=== PATIENT | male | born 1995 | race Caucasian/White ===

== ENCOUNTER 2020-07-30 07:38 | Inpatient (IN) | payer OTHER ==
[~2020-07-30] VITALS: Ht 172.7 cm; Wt 65.1 kg
[~2020-07-30 07:38] MED LIST: CEFDINIR300 MG PO; HUMALOG 75100 UNIT/M SQ; HUMULIN 70100 UNIT/1 SC; LANTUS SOL100 UNIT/1 SC; LEVEMIR FL100 UNIT/1 SQ; NOVOLOG FL100 UNIT/1 SC; PEN NEEDLE1 EAC1 SQ; TAMIFLU 75MG CA75 MG PO
[2020-07-30 08:20] LABS: BASOPHIL 0.8 % (0-2); HCT 48.8 % (42.0-52.0); HGB 16.3 g/dl (13.2-18.0); LYMPHOCYTE 18.4 % (15-48); MCH 27.5 pg (25.0-31.0); MCHC 33.4 g/dL (32.0-36.0); MCV 82.3 fL (78.0-100.0); MONOCYTE 4.1 % (0-12); MPV 9.5 fL (6.0-9.5); NEUTROPHIL 73.2 % (41-80); NRBC 0; PLT 372 K/uL (150-400); RBC 5.93 M/uL (4.70-6.00); RDW 12.3 % (11.5-14.0); WBC 15.3 K/uL (4.0-10.5)
[2020-07-30 08:46] LABS: ALBUMIN 5.2 g/dL (3.4-5.0); BILIRUBIN - TOTAL 0.7 mg/dL (0.2-1.0); BUN/CREAT RATIO (CALC) 31.5 RATIO; CREATININE 0.92 mg/dL (0.67-1.17); POTASSIUM 4.6 mmol/L (3.5-5.1); TOTAL PROTEIN 8.2 g/dL (6.4-8.2)
[2020-07-30 08:54] LABS: LACTIC ACID 2.3 mmol/L (0.4-1.9)
[2020-07-30] MEDS ORDERED: HUMULIN R100 UNIT/1 SC (11:30)
[2020-07-30] MEDS ORDERED: LANTUS **100 UNITS/ SC (11:31)
[2020-07-30 18:00] LABS: BUN/CREAT RATIO (CALC) 21.2 RATIO; CREATININE 0.85 mg/dL (0.67-1.17); POTASSIUM 4.8 mmol/L (3.5-5.1)
[2020-07-30 20:14] LABS: BILIRUBIN 1+ mg/dL (NEGATIVE); BLOOD NEGATIVE Ery/uL (NEGATIVE); CLARITY CLEAR (CLEAR); COLOR YELLOW (YELLOW); GLUCOSE (U) 3+ mg/dL (NORMAL); LEUKOCYTES NEGATIVE Leu/uL (NEGATIVE); NITRITE NEGATIVE (NEGATIVE); PROTEIN NEGATIVE (NEGATIVE); SPECIFIC GRAVITY >=1.030 (1.001-1.030); UROBILINOGEN 0.2 mg/dL (0.2-1.0)
[2020-07-31 05:43] LABS: BASOPHIL 0.5 % (0-2); EOSINOPHIL 2.9 % (0-5); HCT 35.9 % (42.0-52.0); HGB 12.3 g/dl (13.2-18.0); LYMPHOCYTE 24.2 % (15-48); MCH 27.7 pg (25.0-31.0); MCHC 34.3 g/dL (32.0-36.0); MCV 80.9 fL (78.0-100.0); MONOCYTE 6.2 % (0-12); MPV 9.3 fL (6.0-9.5); NEUTROPHIL 65.5 % (41-80); NRBC 0; PLT 248 K/uL (150-400); RBC 4.44 M/uL (4.70-6.00); RDW 12.8 % (11.5-14.0); WBC 9.8 K/uL (4.0-10.5)
[2020-07-31 06:04] LABS: ALBUMIN 2.9 g/dL (3.4-5.0); BILIRUBIN - TOTAL 0.5 mg/dL (0.2-1.0); BUN/CREAT RATIO (CALC) 21.1 RATIO; CREATININE 0.71 mg/dL (0.67-1.17); GLOBULIN (CALCULATION) 2.2 g/dL; POTASSIUM 3.6 mmol/L (3.5-5.1)
[2020-07-31 06:05] LABS: TOTAL PROTEIN 5.1 g/dL (6.4-8.2)
--- NOTE | 2020-07-31 12:53 | NUR ---
DR FAJARDO WENT IN TO TALK TO PATIENT AND TOLD HIM HE WOULD HAVE TO GET HIM OFF THE INSULIN DRIP THEN D/C IN THE MORNING. PATIENT SAID NO HE WAS GOING HOME. WE ENCOURAGED HIM TO STAY BUT SAID HE WOULD SIGN AMA PAPERS HE WAS GOING HOME D/C INSULIN GTT AND GAVE 20UNITS LANTUS, REMOVED IVS,AND ENCOURAGED HIM TO GET INSULIN.
--- NOTE | 2020-07-31 14:10 | NUR ---
07/31/20 A social work referral was received stating patient is unable to get his insulin. 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 He reports to go to "[facility]". Mr. Humphrey declined assistance in securing a PCP. He has gone to Dr. Aguilar in the past. Mr. Humphrey reports to have been told not to come back. - Mr. Humphrey was educated to [facility] where he can get insulin without a prescription. He said the regular insulin makes him sick.
== END 2020-07-31 12:45 | disposition left against medical advice (07) | DRG 637 ==
LOC: FER 07:38 → FICU 09:25
PROVIDERS: Emergency Medicine; Nurse Practitioner; ADMIT Internal Medicine
DX: E10.10 Type 1 diabetes mellitus with ketoacidosis without coma (principal); G93.41 Metabolic encephalopathy; R65.10 Systemic inflammatory response syndrome (SIRS) of non-infectious origin without acute organ dysfunction; Z79.4 Long term (current) use of insulin; Z20.822 Contact with and (suspected) exposure to COVID-19; Z91.14 Patient's other noncompliance with medication regimen
CPT/HCPCS: 36415; 36600; 71045; 80048; 80053; 81003; 82009; 82803; 82962; 83036; 83605; 83690; 85025; 94010; C9113; J1650; J2405; J3480; J7030; U0002

== ENCOUNTER 2021-04-27 20:04 | Inpatient (IN) | payer OTHER ==
[~2021-04-27] VITALS: Ht 172.7 cm; Wt 64.9 kg
[~2021-04-27 20:04] MED LIST changes: +HUMULIN R100 UNIT/1 SC; +LANTUS **100 UNITS/ SC
[2021-04-27 20:54] LABS: BASOPHIL 0.9 % (0-2); EOSINOPHIL 4.6 % (0-5); HCT 51.6 % (42.0-52.0); HGB 17.3 g/dl (13.2-18.0); LYMPHOCYTE 22.2 % (15-48); MCH 27.3 pg (25.0-31.0); MCHC 33.5 g/dL (32.0-36.0); MCV 81.5 fL (78.0-100.0); MPV 9.7 fL (6.0-9.5); NEUTROPHIL 67.4 % (41-80); NRBC 0; PLT 306 K/uL (150-400); RBC 6.33 M/uL (4.70-6.00); RDW 12.1 % (11.5-14.0); WBC 16.6 K/uL (4.0-10.5)
[2021-04-27 21:07] LABS: BILIRUBIN NEGATIVE (NEGATIVE); BLOOD 1+ Ery/uL (NEGATIVE); CLARITY CLEAR (CLEAR); COLOR YELLOW (YELLOW); GLUCOSE (U) 2+ mg/dL (NORMAL); LEUKOCYTES NEGATIVE Leu/uL (NEGATIVE); NITRITE NEGATIVE (NEGATIVE); PROTEIN TRACE (LOW) mg/dL (NEGATIVE); SPECIFIC GRAVITY >=1.030 (1.001-1.030); UROBILINOGEN 0.2 mg/dL (0.2-1.0); pH 5.5 (5.0-9.0)
[2021-04-27 21:08] LABS: INR 0.97 (0.9-1.2); PROTHROMBIN TIME 12.3 SECONDS (11.8-13.4)
[2021-04-27 21:09] LABS: PTT 28.2 SECONDS (24.4-34.7)
[2021-04-27 21:15] LABS: URINARY RBC RARE
[2021-04-27 21:27] LABS: ALBUMIN 4.5 g/dL (3.4-5.0); ALKALINE PHOSHATASE 113 U/L (46-116); ALT 30 U/L (16-63); AST 17 U/L (15-37); BILIRUBIN - TOTAL 0.5 mg/dL (0.2-1.0); BUN 17 mg/dL (7-18); BUN/CREAT RATIO (CALC) 19.8 RATIO; CHLORIDE 93 mmol/L (98-107); CO2 (BICARBONATE) 8 mmol/L (21-32); CREATININE 0.86 mg/dL (0.67-1.17); GLOBULIN (CALCULATION) 3.9 g/dL; GLUCOSE 417 mg/dL (74-106); LDH 165 U/L (85-227); MAGNESIUM 2.2 mg/dL (1.8-2.4); PHOSPHORUS 3.4 mg/dL (2.6-4.7); POTASSIUM 4.2 mmol/L (3.5-5.1); TOTAL PROTEIN 8.4 g/dL (6.4-8.2)
[2021-04-27 21:28] LABS: C-REACTIVE PROTEIN < 0.20 mg/dL (<=0.90)
[2021-04-27 21:34] LABS: LACTIC ACID 0.8 mmol/L (0.4-1.9)
[2021-04-28 03:13] LABS: CREATININE 0.65 mg/dL (0.67-1.17); POTASSIUM 4.5 mmol/L (3.5-5.1)
[2021-04-28 07:58] LABS: BUN/CREAT RATIO (CALC) 12.3 RATIO; CREATININE 0.73 mg/dL (0.67-1.17); POTASSIUM 4.7 mmol/L (3.5-5.1)
[2021-04-28 13:15] LABS: BUN/CREAT RATIO (CALC) 10.8 RATIO; CREATININE 0.74 mg/dL (0.67-1.17); POTASSIUM 4.2 mmol/L (3.5-5.1)
[2021-04-28 16:59] LABS: BUN/CREAT RATIO (CALC) 11.1 RATIO; CREATININE 0.72 mg/dL (0.67-1.17); POTASSIUM 3.7 mmol/L (3.5-5.1)
[2021-04-29 05:46] LABS: HCT 41.3 % (42.0-52.0); HGB 14.5 g/dl (13.2-18.0); MCH 27.4 pg (25.0-31.0); MCHC 35.1 g/dL (32.0-36.0); MCV 77.9 fL (78.0-100.0); MPV 9.4 fL (6.0-9.5); RBC 5.3 M/uL (4.70-6.00); RDW 12.8 % (11.5-14.0); WBC 13.8 K/uL (4.0-10.5)
[2021-04-29 06:09] LABS: BUN/CREAT RATIO (CALC) 10.3 RATIO; CREATININE 0.58 mg/dL (0.67-1.17); POTASSIUM 3.3 mmol/L (3.5-5.1)
[2021-04-29 10:43] LABS: BUN/CREAT RATIO (CALC) 12.2 RATIO; CREATININE 0.49 mg/dL (0.67-1.17); MAGNESIUM 1.9 mg/dL (1.8-2.4); PHOSPHORUS 1.3 mg/dL (2.6-4.7); POTASSIUM 3.5 mmol/L (3.5-5.1)
[2021-04-29 17:18] LABS: BUN/CREAT RATIO (CALC) 9.7 RATIO; CREATININE 0.62 mg/dL (0.67-1.17); POTASSIUM 3.3 mmol/L (3.5-5.1)
[2021-04-30 06:15] LABS: BASOPHIL 0.2 % (0-2); EOSINOPHIL 0 % (0-5); HCT 40.8 % (42.0-52.0); HGB 14.2 g/dl (13.2-18.0); LYMPHOCYTE 12.9 % (15-48); MCH 26.9 pg (25.0-31.0); MCHC 34.8 g/dL (32.0-36.0); MCV 77.4 fL (78.0-100.0); MONOCYTE 6.7 % (0-12); MPV 9.7 fL (6.0-9.5); NEUTROPHIL 79.8 % (41-80); NRBC 0; PLT 205 K/uL (150-400); RBC 5.27 M/uL (4.70-6.00); RDW 12.9 % (11.5-14.0); WBC 12.2 K/uL (4.0-10.5)
[2021-04-30 06:35] LABS: BUN/CREAT RATIO (CALC) 8.9 RATIO; CREATININE 0.56 mg/dL (0.67-1.17); PHOSPHORUS 1.4 mg/dL (2.6-4.7)
[2021-05-01 07:05] LABS: BUN/CREAT RATIO (CALC) 10.9 RATIO; CREATININE 0.64 mg/dL (0.67-1.17); POTASSIUM 3.2 mmol/L (3.5-5.1)
[2021-05-01] MEDS ORDERED: NOVOLOG FL100 UNIT/1 SC (12:13)
[2021-05-01] MEDS ORDERED: ZOFRAN4 M1 PO (12:13)
[2021-05-01] MEDS ORDERED: LANTUS SOL100 UNIT/1 SC (12:13)
== END 2021-05-01 12:26 | disposition home or self-care (01) | DRG 639 ==
LOC: FER 20:04 → FICU 04-28 17:41 → FMS 04-30 08:35
PROVIDERS: Emergency Medicine; Emergency Medicine Emergency Medical Services; Internal Medicine; ADMIT Hospitalist
DX: E10.10 Type 1 diabetes mellitus with ketoacidosis without coma (principal); Z20.822 Contact with and (suspected) exposure to COVID-19; E87.6 Hypokalemia; E86.0 Dehydration; A08.4 Viral intestinal infection, unspecified; Z90.89 Acquired absence of other organs
CPT/HCPCS: 36415; 36600; 71045; 80048; 80053; 81001; 82009; 82728; 82803; 82962; 83036; 83605; 83615; 83690; 83735; 83880; 84100; 84145; 84443; 84484; 85025; 85610; 85730; 86140; 87040; 87088; 87880; 93005; J1650; J1815; J2405; J2550; J3480; J7030; J7040; J7050; U0002

== ENCOUNTER 2021-05-27 13:21 | Emergency (ER) | payer OTHER ==
[~2021-05-27 13:21] MED LIST changes: +ZOFRAN4 M1 PO
== END 2021-05-27 17:28 | disposition home or self-care (01) ==
LOC: FER 13:21
DX: L02.01 Cutaneous abscess of face (principal); E10.9 Type 1 diabetes mellitus without complications; Z79.4 Long term (current) use of insulin
CPT/HCPCS: 99282

== ENCOUNTER 2021-06-02 10:25 | Inpatient (IN) | payer OTHER ==
[~2021-06-02] VITALS: Ht 172.7 cm; Wt 65.9 kg
[2021-06-02 11:36] LABS: BUN/CREAT RATIO (CALC) 26.5 RATIO; CREATININE 1.02 mg/dL (0.67-1.17); POTASSIUM 4.9 mmol/L (3.5-5.1)
[2021-06-02 11:53] LABS: BASOPHIL 0.5 % (0-2); EOSINOPHIL 0.2 % (0-5); HCT 52.3 % (42.0-52.0); HGB 17.1 g/dl (13.2-18.0); LYMPHOCYTE 7.3 % (15-48); MCH 27.8 pg (25.0-31.0); MCHC 32.7 g/dL (32.0-36.0); MCV 84.9 fL (78.0-100.0); MONOCYTE 5.3 % (0-12); MPV 10.6 fL (6.0-9.5); NEUTROPHIL 85.8 % (41-80); NRBC 0; PLT 434 K/uL (150-400); RBC 6.16 M/uL (4.70-6.00); RDW 12.4 % (11.5-14.0)
[2021-06-02 11:59] LABS: WBC 35.3 K/uL (4.0-10.5)
[2021-06-02 13:35] LABS: LACTIC ACID 2.8 mmol/L (0.4-1.9)
[2021-06-02 14:25] LABS: BILIRUBIN NEGATIVE (NEGATIVE); BLOOD TRACE-INTACT Ery/uL (NEGATIVE); CLARITY CLEAR (CLEAR); COLOR YELLOW (YELLOW); GLUCOSE (U) 2+ mg/dL (NORMAL); LEUKOCYTES NEGATIVE Leu/uL (NEGATIVE); NITRITE NEGATIVE (NEGATIVE); PROTEIN NEGATIVE (NEGATIVE); SPECIFIC GRAVITY 1.025 (1.001-1.030); UROBILINOGEN 0.2 mg/dL (0.2-1.0); pH 5.5 (5.0-9.0)
[2021-06-02 15:28] LABS: SQUAMOUS EPITHELIAL CELLS RARE
[2021-06-02 19:13] LABS: ALBUMIN 3.8 g/dL (3.4-5.0); BILIRUBIN - TOTAL 0.3 mg/dL (0.2-1.0); CREATININE 0.76 mg/dL (0.67-1.17); GLOBULIN (CALCULATION) 2.5 g/dL; MAGNESIUM 2.1 mg/dL (1.8-2.4); PHOSPHORUS 3.4 mg/dL (2.6-4.7); POTASSIUM 4.7 mmol/L (3.5-5.1); TOTAL PROTEIN 6.3 g/dL (6.4-8.2)
[2021-06-03 03:44] LABS: HCT 36.9 % (42.0-52.0); HGB 12.9 g/dl (13.2-18.0); MCH 27.8 pg (25.0-31.0); MPV 9.7 fL (6.0-9.5); RBC 4.64 M/uL (4.70-6.00); RDW 12.6 % (11.5-14.0); WBC 20.4 K/uL (4.0-10.5)
[2021-06-03 03:52] LABS: MCV 79.5 fL (78.0-100.0)
[2021-06-03 04:05] LABS: BUN/CREAT RATIO (CALC) 19.1 RATIO; CREATININE 0.68 mg/dL (0.67-1.17)
[2021-06-03 04:19] LABS: POTASSIUM 3.8 mmol/L (3.5-5.1)
[2021-06-03 11:02] LABS: BUN/CREAT RATIO (CALC) 15.7 RATIO; CREATININE 0.7 mg/dL (0.67-1.17); POTASSIUM 3.8 mmol/L (3.5-5.1)
[2021-06-04 05:32] LABS: BUN/CREAT RATIO (CALC) 12.1 RATIO; CREATININE 0.66 mg/dL (0.67-1.17); POTASSIUM 3.4 mmol/L (3.5-5.1)
[2021-06-04 05:35] LABS: BASOPHIL 0.4 % (0-2); EOSINOPHIL 0.1 % (0-5); HCT 39.7 % (42.0-52.0); HGB 13.5 g/dl (13.2-18.0); LYMPHOCYTE 14.6 % (15-48); MCH 27.4 pg (25.0-31.0); MCV 80.5 fL (78.0-100.0); MONOCYTE 5.5 % (0-12); NRBC 0; PLT 264 K/uL (150-400); RBC 4.93 M/uL (4.70-6.00); RDW 12.9 % (11.5-14.0)
--- NOTE | 2021-06-04 17:14 | NUR ---
06/04/21 Mr. Humphrey now has [facility] insurance and Primary Care through Dr. Edgardo Dubose. Mr. Humphrey has seen one Lap[facility] Baster and was not pleased with the services. He has requested assistance in getting an appointment with a new Lapel Baster. A referral was made to the Resources Clinical Program ManagerEmani Candelario. A report was given to Dr. Jin.
[2021-06-05 06:58] LABS: BASOPHIL 0.5 % (0-2); EOSINOPHIL 0.4 % (0-5); HCT 37.5 % (42.0-52.0); HGB 12.9 g/dl (13.2-18.0); LYMPHOCYTE 27.7 % (15-48); MCHC 34.4 g/dL (32.0-36.0); MCV 78.5 fL (78.0-100.0); MONOCYTE 9.2 % (0-12); MPV 9.4 fL (6.0-9.5); NEUTROPHIL 61.8 % (41-80); NRBC 0; PLT 233 K/uL (150-400); RBC 4.78 M/uL (4.70-6.00); RDW 12.6 % (11.5-14.0); WBC 8.2 K/uL (4.0-10.5)
[2021-06-05 07:06] LABS: BUN/CREAT RATIO (CALC) 11.5 RATIO; CREATININE 0.78 mg/dL (0.67-1.17); POTASSIUM 2.7 mmol/L (3.5-5.1)
[2021-06-05] MEDS ORDERED: BACTRIM DS TAB1 EACH PO (08:17)
== END 2021-06-05 13:35 | disposition home or self-care (01) | DRG 853 ==
LOC: FER 10:25 → FICU 14:14 → FMS 14:14 → FER 16:22 → FMS 06-04 07:36
PROVIDERS: Allergy & Immunology Allergy; Emergency Medicine; Nurse Practitioner Acute Care; Surgery; ADMIT Internal Medicine
PROC: 0JB10ZZ Excision of Face Subcutaneous Tissue and Fascia, Open Approach (ICD-10-PCS; principal; 2021-06-04 12:30)
DX: A41.9 Sepsis, unspecified organism (principal); E10.10 Type 1 diabetes mellitus with ketoacidosis without coma; G93.41 Metabolic encephalopathy; L02.01 Cutaneous abscess of face; R65.20 Severe sepsis without septic shock; Z20.822 Contact with and (suspected) exposure to COVID-19; L72.3 Sebaceous cyst
CPT/HCPCS: 36415; 36600; 70486; 71045; 80048; 80053; 80202; 81001; 82009; 82803; 82962; 83036; 83605; 83735; 84100; 84145; 85025; 87040; 87070; 87075; C9113; J1100; J1650; J1815; J1885; J2001; J2250; J2405; J2543; J2704; J3010; J3370; J3480; J7030; J7050; J7120; U0002

== ENCOUNTER 2021-10-11 10:29 | Inpatient (IN) | payer OTHER ==
[~2021-10-11 10:29] MED LIST changes: +BACTRIM DS TAB1 EACH PO; +LANTUS100 UNIT/1 SC; +NOVOLOG VI100 UNIT/1 SC
[2021-10-11 11:38] LABS: BASOPHIL 0.4 % (0-2); EOSINOPHIL 0.1 % (0-5); HCT 47.3 % (42.0-52.0); HGB 16.1 g/dl (13.2-18.0); LYMPHOCYTE 5.9 % (15-48); MCV 79.4 fL (78.0-100.0); MONOCYTE 3.2 % (0-12); MPV 10.1 fL (6.0-9.5); NEUTROPHIL 89.2 % (41-80); NRBC 0; PLT 453 K/uL (150-400); RBC 5.96 M/uL (4.70-6.00); WBC 28.9 K/uL (4.0-10.5)
[2021-10-11 11:49] LABS: LACTIC ACID 2.8 mmol/L (0.4-1.9)
[2021-10-11 11:51] LABS: ALBUMIN 5.1 g/dL (3.4-5.0); BILIRUBIN - TOTAL 0.6 mg/dL (0.2-1.0); BUN/CREAT RATIO (CALC) 24.8 RATIO; CREATININE 1.25 mg/dL (0.67-1.17); GLOBULIN (CALCULATION) 3.4 g/dL; POTASSIUM 5.4 mmol/L (3.5-5.1); TOTAL PROTEIN 8.5 g/dL (6.4-8.2)
[2021-10-11 13:43] LABS: BILIRUBIN NEGATIVE (NEGATIVE); BLOOD TRACE-INTACT Ery/uL (NEGATIVE); CLARITY CLEAR (CLEAR); COLOR YELLOW (YELLOW); GLUCOSE (U) 2+ mg/dL (NORMAL); LEUKOCYTES NEGATIVE Leu/uL (NEGATIVE); NITRITE NEGATIVE (NEGATIVE); PROTEIN NEGATIVE (NEGATIVE); SPECIFIC GRAVITY 1.025 (1.001-1.030); UROBILINOGEN 0.2 mg/dL (0.2-1.0)
[2021-10-11 13:56] LABS: SQUAMOUS EPITHELIAL CELLS RARE
[2021-10-11 17:23] LABS: BUN/CREAT RATIO (CALC) 23.2 RATIO; CREATININE 1.25 mg/dL (0.67-1.17); POTASSIUM 5.3 mmol/L (3.5-5.1)
[2021-10-11 22:10] LABS: BUN/CREAT RATIO (CALC) 23.3 RATIO; CREATININE 1.03 mg/dL (0.67-1.17)
[2021-10-11 22:26] LABS: POTASSIUM 3.8 mmol/L (3.5-5.1)
[2021-10-12 00:10] LABS: BASOPHIL 0.2 % (0-2); EOSINOPHIL 0 % (0-5); HCT 34.4 % (42.0-52.0); LYMPHOCYTE 9.3 % (15-48); MCHC 34.9 g/dL (32.0-36.0); MCV 77.3 fL (78.0-100.0); MONOCYTE 6.8 % (0-12); MPV 9.5 fL (6.0-9.5); NEUTROPHIL 82.9 % (41-80); NRBC 0; PLT 272 K/uL (150-400); RBC 4.45 M/uL (4.70-6.00); WBC 21.2 K/uL (4.0-10.5)
[2021-10-12 00:21] LABS: BUN/CREAT RATIO (CALC) 22.5 RATIO; CREATININE 1.02 mg/dL (0.67-1.17)
[2021-10-12 04:43] LABS: ALBUMIN 3.3 g/dL (3.4-5.0); BILIRUBIN - TOTAL 0.4 mg/dL (0.2-1.0); BUN/CREAT RATIO (CALC) 19.6 RATIO; CREATININE 0.97 mg/dL (0.67-1.17); GLOBULIN (CALCULATION) 2.3 g/dL; MAGNESIUM 1.8 mg/dL (1.8-2.4); POTASSIUM 3.8 mmol/L (3.5-5.1)
[2021-10-12 04:46] LABS: TOTAL PROTEIN 5.6 g/dL (6.4-8.2)
[2021-10-12 10:56] LABS: BASOPHIL 0.1 % (0-2); EOSINOPHIL 0.1 % (0-5); HGB 11.4 g/dl (13.2-18.0); LYMPHOCYTE 8.2 % (15-48); MCH 26.9 pg (25.0-31.0); MCHC 34.5 g/dL (32.0-36.0); MCV 77.8 fL (78.0-100.0); MONOCYTE 5.3 % (0-12); MPV 9.2 fL (6.0-9.5); NEUTROPHIL 85.5 % (41-80); NRBC 0; PLT 224 K/uL (150-400); RBC 4.24 M/uL (4.70-6.00); RDW 13.1 % (11.5-14.0); WBC 15.9 K/uL (4.0-10.5)
[2021-10-12 11:14] LABS: BUN/CREAT RATIO (CALC) 19.7 RATIO; CREATININE 0.76 mg/dL (0.67-1.17); POTASSIUM 3.3 mmol/L (3.5-5.1)
[2021-10-13 06:01] LABS: BASOPHIL 0.1 % (0-2); EOSINOPHIL 0 % (0-5); HCT 31.8 % (42.0-52.0); HGB 11.1 g/dl (13.2-18.0); LYMPHOCYTE 12.3 % (15-48); MCH 26.9 pg (25.0-31.0); MCHC 34.9 g/dL (32.0-36.0); MONOCYTE 7.3 % (0-12); MPV 9.2 fL (6.0-9.5); NEUTROPHIL 79.9 % (41-80); NRBC 0; PLT 181 K/uL (150-400); RBC 4.13 M/uL (4.70-6.00); WBC 10.3 K/uL (4.0-10.5)
[2021-10-13 06:48] LABS: CREATININE 0.75 mg/dL (0.67-1.17); MAGNESIUM 1.6 mg/dL (1.8-2.4); POTASSIUM 3.1 mmol/L (3.5-5.1)
--- NOTE | 2021-10-13 17:55 | NUR ---
10/13/21 Mr. Humphrey and his 6 y/o daughter are living with his mother. He is working at [employer]. Mr. Humphrey no longer has a PCP. Mr. Humphrey inquired about community resources and SSD. A referral was made to the Resource Schedule to set up another PCP. (He was previously set up with Dr. Aguilar). Mr. Humphrey was referred to [employer] to apply for foodstamps. He was educated to financial community resources and Vocational Rehabilitation services. The SSD application process was explained.
[2021-10-13] MEDS ORDERED: NOVOLOG FL100 UNIT/1 SC (19:14)
[2021-10-13] MEDS ORDERED: LANTUS SOL100 UNIT/1 SC (19:14)
--- NOTE | 2021-10-13 19:49 | NUR ---
PT GIVEN 20 UNITS OF SEMGLEE PER EMAR. INSTRUCTED ON MEDICATIONS AND FUTURE APPOINTMENT WITH PCP. MONITOR AND 2 IVS REMOVED. PATIENT LEFT WITH MOTHER AT 1947.
== END 2021-10-13 19:47 | disposition home or self-care (01) | DRG 638 ==
LOC: FER 10:29 → FICU 13:05 → FTCU 10-13 10:00
PROVIDERS: Emergency Medicine; Nurse Practitioner Acute Care; ADMIT Internal Medicine
DX: E10.10 Type 1 diabetes mellitus with ketoacidosis without coma (principal); R65.10 Systemic inflammatory response syndrome (SIRS) of non-infectious origin without acute organ dysfunction; Z20.822 Contact with and (suspected) exposure to COVID-19; E86.0 Dehydration; J45.909 Unspecified asthma, uncomplicated; Z82.61 Family history of arthritis; Z79.899 Other long term (current) drug therapy; Z28.310 Unvaccinated for COVID-19
CPT/HCPCS: 36415; 36600; 71045; 78264; 80048; 80053; 81001; 82009; 82803; 82962; 83605; 83690; 83735; 84145; 85025; 87040; 94010; A9541; J0696; J1650; J1815; J2405; J3480; J7030; J7042; U0002

== ENCOUNTER 2022-01-05 23:16 | Inpatient (IN) | payer OTHER ==
[~2022-01-05] VITALS: Ht 172.7 cm; Wt 58.3 kg
[2022-01-06 00:45] LABS: BILIRUBIN 1+ mg/dL (NEGATIVE); BLOOD NEGATIVE Ery/uL (NEGATIVE); CLARITY CLEAR (CLEAR); COLOR YELLOW (YELLOW); GLUCOSE (U) 3+ mg/dL (NORMAL); LEUKOCYTES NEGATIVE Leu/uL (NEGATIVE); NITRITE NEGATIVE (NEGATIVE); PROTEIN 1+ mg/dL (NEGATIVE); SPECIFIC GRAVITY >=1.030 (1.001-1.030); UROBILINOGEN 0.2 mg/dL (0.2-1.0)
[2022-01-06 01:03] LABS: BASOPHIL 0.2 % (0-2); EOSINOPHIL 0.1 % (0-5); HCT 40.6 % (42.0-52.0); HGB 13.9 g/dl (13.2-18.0); LYMPHOCYTE 11.1 % (15-48); MCH 27.4 pg (25.0-31.0); MCHC 34.2 g/dL (32.0-36.0); MCV 79.9 fL (78.0-100.0); MONOCYTE 2.5 % (0-12); MPV 9.6 fL (6.0-9.5); NEUTROPHIL 85.8 % (41-80); NRBC 0; PLT 283 K/uL (150-400); RBC 5.08 M/uL (4.70-6.00); WBC 9.7 K/uL (4.0-10.5)
[2022-01-06 01:40] LABS: CORONAVIRUS 2019 SARS-COV-2 NEGATIVE (NEGATIVE); INFLUENZA A NAA NEGATIVE (NEGATIVE)
[2022-01-06 01:44] LABS: URINARY WBC RARE
[2022-01-06 02:21] LABS: ALBUMIN 4.3 g/dL (3.4-5.0); ALKALINE PHOSHATASE 73 U/L (46-116); ALT 117 U/L (16-63); AST 128 U/L (15-37); BILIRUBIN - TOTAL 0.6 mg/dL (0.2-1.0); BUN 29 mg/dL (7-18); BUN/CREAT RATIO (CALC) 30.2 RATIO; CHLORIDE 93 mmol/L (98-107); CO2 (BICARBONATE) 22 mmol/L (21-32); CREATININE 0.96 mg/dL (0.67-1.17); GLOBULIN (CALCULATION) 3.5 g/dL; GLUCOSE 394 mg/dL (74-106); LIPASE 46 U/L (73-393); POTASSIUM 4.3 mmol/L (3.5-5.1); TOTAL PROTEIN 7.8 g/dL (6.4-8.2)
[2022-01-06 04:07] LABS: ALBUMIN 4.2 g/dL (3.4-5.0); BILIRUBIN - TOTAL 0.5 mg/dL (0.2-1.0); BUN/CREAT RATIO (CALC) 25.7 RATIO; CREATININE 1.01 mg/dL (0.67-1.17); GLOBULIN (CALCULATION) 3.4 g/dL; POTASSIUM 4.4 mmol/L (3.5-5.1); TOTAL PROTEIN 7.6 g/dL (6.4-8.2)
[2022-01-06 06:16] LABS: BASOPHIL 0.3 % (0-2); EOSINOPHIL 0 % (0-5); HCT 38.4 % (42.0-52.0); HGB 13.1 g/dl (13.2-18.0); LYMPHOCYTE 9.8 % (15-48); MCH 27.3 pg (25.0-31.0); MCHC 34.1 g/dL (32.0-36.0); MONOCYTE 2.9 % (0-12); MPV 9.1 fL (6.0-9.5); NEUTROPHIL 86.5 % (41-80); NRBC 0; PLT 239 K/uL (150-400); RDW 13.2 % (11.5-14.0)
[2022-01-06 06:34] LABS: BUN/CREAT RATIO (CALC) 24.2 RATIO; CREATININE 0.99 mg/dL (0.67-1.17); MAGNESIUM 2.7 mg/dL (1.8-2.4); POTASSIUM 4.3 mmol/L (3.5-5.1)
--- NOTE | 2022-01-06 14:27 | NUR ---
01/06/22 Mr. Bridges and his 5 y/o daughter live with his mother. Mr. Bridges recently quit his job at [employer] and is seeking emploment elsewhere. - Mr. bridges ran out of his long acting insulin. He said he did not call Dr. Aguilar as not to burbened him since he recently started seeing Dr. Aguilar again. Mr. Bridges thought he needed to have the rx reordered by his reinforcing rod layer. Mr. Bridges was encourged to monitor whenhis prescription need to be renewed. The marble installation helper is trying to get an appointment scheduled with Dr. Aguilar. - Mr. Bridges declined information re: Vocational Rehabilitation services.
[2022-01-06 14:54] LABS: CREATININE 0.87 mg/dL (0.67-1.17); POTASSIUM 4.3 mmol/L (3.5-5.1)
[2022-01-06 14:55] LABS: ALBUMIN 3.8 g/dL (3.4-5.0); BILIRUBIN - DIRECT 0.1 mg/dL (0.00-0.20); BILIRUBIN - TOTAL 0.4 mg/dL (0.2-1.0); GLOBULIN (CALCULATION) 3.1 g/dL; TOTAL PROTEIN 6.9 g/dL (6.4-8.2)
[2022-01-06 15:35] LABS: BUN/CREAT RATIO (CALC) 22.4 RATIO; CREATININE 0.85 mg/dL (0.67-1.17)
[2022-01-06] MEDS ORDERED: LANTUS SOL100 UNIT/1 SC (17:22)
== END 2022-01-06 18:10 | disposition home or self-care (01) | DRG 638 ==
LOC: FER 23:16 → FICU 01-06 04:58
PROVIDERS: Allergy & Immunology; Internal Medicine; ADMIT Family Medicine
DX: E10.10 Type 1 diabetes mellitus with ketoacidosis without coma (principal); Z68.1 Body mass index [BMI] 19.9 or less, adult; D64.9 Anemia, unspecified; Z20.822 Contact with and (suspected) exposure to COVID-19; R63.6 Underweight; R74.02 Elevation of levels of lactic acid dehydrogenase [LDH]; Z79.4 Long term (current) use of insulin
CPT/HCPCS: 36415; 80048; 80053; 80076; 81001; 82009; 82962; 83605; 83690; 83735; 84484; 85025; 93005; 94010; 94760; J1650; J1815; J2405; J2550; J3475; J3480; J7030; U0002